=== PATIENT | male | born 1955 | race Two or more races ===

== ENCOUNTER 2020-01-14 07:10 | Day surgery (SDC) | payer MEDICARE, BC ==
[2020-01-14] VITALS (12 sets, daily range): BP systolic 85–113; BP diastolic 56–70
[~2020-01-14] VITALS: Ht 188 cm; Wt 73.5 kg
[~2020-01-14 07:10] MED LIST: ceFAZolin sod 1 GM in NS 55 ML IVPB ONE
[2020-01-14] MEDS ORDERED: Bupivacaine 0.5% Inj 30 ml vial INJ ONE (07:30)
[2020-01-14] MEDS ORDERED: EPINEPHrine 1mg/1ml Amp ONE (07:30)
[2020-01-14] MEDS ORDERED: Rocuronium Bromide 50mg/5ml Inj IV ONE (07:34)
[2020-01-14] MEDS ORDERED: COREG6.25 MG ORAL (08:29)
[2020-01-14] MEDS ORDERED: LISINOPRIL10 MG ORAL (08:30)
[2020-01-14] MEDS ORDERED: ASPIRIN EC81 MG ORAL (08:31)
[2020-01-14] MEDS ORDERED: TRICON CAPSULE1 EACH PO (08:31)
[2020-01-14] MEDS ORDERED: TIVICAY50 MG ORAL (08:32)
[2020-01-14] MEDS ORDERED: KALETRA 100-251 EACH ORAL (08:33)
[2020-01-14] MEDS ORDERED: MYTESI PO (08:34)
[2020-01-14] MEDS ORDERED: [UNRECOGNIZED DRUG - OTHER] PO (08:35)
[2020-01-14] MEDS ORDERED: CREON DR 36,001 EACH PO (08:36)
[2020-01-14] MEDS ORDERED: OXYCODONE-ACET1 EAC5 ORAL (08:37)
[2020-01-14] MEDS ORDERED: TESTOSTERO200 MG/1 M IM (08:38)
--- NOTE | 2020-01-14 09:56 | Pre-Procedure Note/Attestation ---
Pre-Procedure Note/Attestation Complete Prior to Procedure Planned Procedure: right Procedure Narrative: Right Radical Orchiectomy Indications for Procedure Pre-Operative Diagnosis: right testicular mass Attestation I attest that I discussed the nature of the procedure; its benefits; risks and complications; and alternatives (and the risks and benefits of such alternatives), prior to the procedure, with the patient (or the patient's legal field sales representative). I attest that, if there was a reasonable possibility of needing a blood transfusion, the patient (or the patient's legal field sales representative) was given the [facility] standardized written summary, pursuant to the Saeid Harpreet Blood Safety Act ([place] Health and Safety Code # 1645, as amended). I attest that I re-evaluated the patient just prior to the surgery and that there has been no change in the patient's H&P, except as documented below: Fox Mckinley MD Jan 14, 2020 09:56
[2020-01-14] MEDS ORDERED: Midazolam 2mg/2ml Inj ONE (10:11)
[2020-01-14] MEDS ORDERED: Sterile Water Irrig 1000ml IRRIG ONE (10:30)
[2020-01-14] MEDS ORDERED: LR 1000ml ONE (10:30)
[2020-01-14] MEDS ORDERED: NS Irrig 1000ml IRRIG ONE (10:45)
[2020-01-14] MEDS ORDERED: Phenylephrine 10mg/ml Vial ONE (10:49)
[2020-01-14] MEDS ORDERED: Metoclopramide 10mg/2ml Inj ONE (10:49)
[2020-01-14] MEDS ORDERED: Lidocaine 1% MPF 10mg/ml 5ml ONE (10:49)
[2020-01-14] MEDS ORDERED: ePHEDrine 50mg/ml Inj ONE (10:49)
[2020-01-14] MEDS ORDERED: Ketorolac 30mg Inj ONE (10:56)
[2020-01-14] MEDS ORDERED: Hydromorphone 0.5mg/0.5ml inj IVP PRN (11:00)
[2020-01-14] MEDS ORDERED: Metoclopramide 10mg/2ml Inj IVP PRN (11:00)
--- NOTE | 2020-01-14 11:01 | Anethesia Preoperative Eval ---
Anesthesia Pre-op PMH/ROS General Date of Evaluation: Jan 14, 2020 Time of Evaluation: 10:30 Anesthesiologist: frankie ASA Score: ASA 3 Mallampati Score Class I : Soft palate, uvula, fauces, pillars visible Class II: Soft palate, uvula, fauces visible Class III: Soft palate, base of uvula visible Class IV: Only hard plate visible Mallampati Classification: Class II Surgeon: Elías Diagnosis: Scrotal Pain Surgical Procedure: Right radical Orchiectomy Anesthesia History: none Family History: no anesthesia problems Allergies: Coded Allergies: No Known Allergies (Unverified , 01/13/20) Medications: see eMAR Patient NPO?: Yes NPO Date: Jan 14, 2020 NPO Time: 00:01 Past Medical History Cardiovascular: Reports: HTN Pulmonary: Denies: asthma, COPD, KIERA, other Gastrointestinal/Genitourinary: Denies: GERD, CRI, ESRD, other Neurologic/Psychiatric: Denies: dementia, CVA, depression/anxiety, TIA, other Endocrine: Denies: DM, hypothyroidism, steroids, other HEENT: Denies: cataract (L), cataract (R), glaucoma, LOWER BRULE (L), LOWER BRULE (R), other Hematology/Immune: Denies: anemia, DVT, bleeding disorder, other Musculoskeletal/Integumentary: Reports: OA; Denies: RA, DJD, DDD, edema, other Other: other - HIV postive PSxH Narrative: Spinal Fusion 1 week ago, pt is c/o 8/10 pain to back, laying side ways, did not take his oxycodone this am. Also pre existing muscle soreness to bilateral thighs and knees Anesthesia Pre-op Phys. Exam Physician Exam Last Vital Signs Date Time Temp Pulse Resp B/P (MAP) Pulse Ox O2 Delivery O2 Flow Rate FiO2 01/14/20 08:41 Room Air 01/14/20 08:15 98.7 62 18 102/62 99 Constitutional: NAD Neurologic: CN 2-12 intact Cardiovascular: RRR Respiratory: CTA Gastrointestinal: S/NT/ND Airway Exam Mallampati Classification 2 Mallampati Score: Class II MO: full ROM: full Dentures: no upper, no lower Anesthesia Pre-op A/P Studies Pre-op Studies: EKG - SR Risk Assessment & Plan Assessment: c/o weakness and pain from surgical site from spinal fusion one week ago, Dr. Mckinley is aware and explained to patient regarding increase pain and risks of radical orchiectomy and position. Pt acknowledged and okayed to proceed Plan: General Status Change Before Surgery: No Pre-Antibiotics Drug: ancef Given Within 1 Hr of Incision: Yes Time Given: 10:35 Theresa Wilson CRNA Jan 14, 2020 11:01
[2020-01-14] MEDS ORDERED: Neostigmine 1mg/ml 10ml Inj ONE (11:05)
[2020-01-14] MEDS ORDERED: Glycopyrrolate 0.2mg/ml 1ml Vial ONE (11:05)
--- NOTE | 2020-01-14 11:34 | Immediate Post-Op Evaluation ---
Immediate Post-Op Evalulation Immediate Post-Op Evalulation Procedure: rigth radical orchiectomy Date of Evaluation: Jan 14, 2020 Time of Evaluation: 11:20 IV Fluids: 1000 Blood Pressure Systolic: 92 Blood Pressure Diastolic: 66 Pulse Rate: 71 Respiratory Rate: 14 O2 Sat by Pulse Oximetry: 99 Temperature (Fahrenheit): 99.4 Nausea: No Vomiting: No Complications none Patient Status: awake, reacts, patent Hydration Status: adequate Drug: ancef Given Within 1 Hr of Incision: Yes Time Given: 11:20 Theresa Wilson CRNA Jan 14, 2020 11:34
--- NOTE | 2020-01-14 11:56 | Brief Operative Note ---
Immediate Post Operative Note Operative Note Pre-op Diagnosis: right testicular mass Procedure: right radical orchiectomy Post-op Diagnosis: same Post-op Diagnosis: same as pre-op Surgeon: Ranjan Mckinley Anesthesia: general Specimen: yes Complications: none Condition: stable Fluids: 500 Estimated Blood Loss: minimal Implant(s) used?: No Fox Mckinley MD Jan 14, 2020 11:56
[2020-01-14] MEDS ORDERED: HYDROcodone/Acetamin 5/325 tab ORAL PRN (12:00)
[2020-01-14] MEDS ORDERED: HYDROmorphone 1mg/ml Carpuject SUBQ PRN (12:00)
[2020-01-14] MEDS ORDERED: Tylenol #3 tab (300mg/30mg) ORAL PRN (12:00)
--- NOTE | 2020-01-14 14:45 | 48 Hour Post Anesthesia Eval ---
Post Anesthesia Evaluation Procedure: rigth radical orchiectomy Date of Evaluation: Jan 14, 2020 Time of Evaluation: 14:45 Blood Pressure Systolic: 104 0: 64 Pulse Rate: 58 Respiratory Rate: 14 O2 Sat by Pulse Oximetry: 98 Airway: patent Nausea: No Vomiting: No Hydration Status: adequate Cardiopulmonary Status: none Mental Status/LOC: patient returned to baseline Follow-up Care/Observations: na Post-Anesthesia Complications: none Follow-up care needed: N/A Theresa Wilson CRNA Jan 14, 2020 14:45
[2020-01-14] MEDS ORDERED: D5 1/2NS 1,000 ML IV SCH (16:00)
--- NOTE | 2020-01-20 20:45 | Operative Note - Dictated ---
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 INDICATIONS FOR SURGERY: The patient had the right groin pain for a long period of time with recurrence of right epididymo-orchitis, treated with multiple antibiotics. Despite that, he had very dense inflammatory changes into his vas deferens and spermatic cord . DESCRIPTION OF PROCEDURE: The patient was brought to the operating room, placed in supine position, prepped and draped in standard fashion. A 2.5 cm incision in the right groin was made. External oblique aponeurosis was excised and the testicle was brought in from the scrotum into the groin incision area, it was dissected from surrounding adhesions. Gubernaculum was dissected with electrocautery and spermatic cord was mobilized. Using 2-0 silk suture, the cord was sequentially resected and ligated and all the length of the spermatic cord was removed for pathologic examination. Wound was copiously irrigated and closed in multiple layers, subcuticular closure for the skin and dressing. Sponge count, instrument count was correct. Instrument count was correct. The patient was transferred to recovery in stable condition. No evidence of complications. Fox Mckinley M.D. DR: ADAM JOB#: [id number] CC:
== END 2020-01-14 13:55 | disposition home or self-care (01) ==
LOC: SUR 07:10
DX: N45.3 Epididymo-orchitis (principal); N49.1 Inflammatory disorders of spermatic cord, tunica vaginalis and vas deferens; R10.2 Pelvic and perineal pain; I10 Essential (primary) hypertension; M19.90 Unspecified osteoarthritis, unspecified site; B20 Human immunodeficiency virus [HIV] disease; Z98.1 Arthrodesis status
CPT/HCPCS: 54530; 94003; J0171; J0690; J1170; J1885; J2250; J2370; J2405; J2704; J2710; J2765; J7120; U0002; 94150